=== PATIENT | male | born 1995 ===

== ENCOUNTER 2020-08-22 12:49 | Emergency (ER) | payer SELFPAY ==
[2020-08-22 13:09] VITALS: BP 157/97
--- NOTE | 2020-08-22 13:10 | Emergency Department Report ---
ED General Adult HPI - General Stated complaint: NOSE SWOLLEN Time Seen by Provider: 08/22/20 13:07 - History of Present Illness Initial comments: 24-year-old Upper Sorbian-speaking male patient presents with complaints of nasal pain after a trip and fall injury while playing soccer 4 days ago. He rates his pain as a 4/10 in severity and denies any difficulty breathing. He also denies any loss of consciousness at the time or nausea/vomiting - Related Data Previous Rx's Medication Instructions Recorded Last Taken Type Ibuprofen [Motrin 800 MG tab] 800 mg PO Q8HR PRN #20 tablet 08/22/20 Unknown Rx Allergies Allergy/AdvReac Type Severity Reaction Status Date / Time No Known Allergies Allergy Unverified 08/22/20 13:06 ED Review of Systems ROS: Stated complaint: NOSE SWOLLEN Other details as noted in HPI Constitutional: denies: chills, fever, malaise Eyes: denies: eye pain, vision change ENT: denies: throat pain Respiratory: denies: cough, shortness of breath Cardiovascular: denies: chest pain Gastrointestinal: denies: nausea, vomiting ED Past Medical Hx - Medications Home Medications: Home Medications Medication Instructions Recorded Confirmed Last Taken Type Ibuprofen [Motrin 800 MG tab] 800 mg PO Q8HR PRN #20 tablet 08/22/20 Unknown Rx ED Physical Exam - General General appearance: alert, in no apparent distress - Head Head exam: Present: normocephalic - Expanded Head Exam Expanded Head exam: Absent: abrasion, contusion, hematoma, racoon eyes, carrion's sign - Eye Eye exam: Present: normal appearance, EOMI. Absent: scleral icterus - ENT ENT exam: Present: other (Tenderness to palpation noted over the nasal bridge with right sided deformity) - Respiratory Respiratory exam: Absent: respiratory distress - Cardiovascular Cardiovascular Exam: Present: regular rate - Extremities Exam Extremities exam: Present: full ROM - Back Exam Back exam: Present: normal inspection - Neurological Exam Neurological exam: Present: alert, oriented X3, normal gait - Psychiatric Psychiatric exam: Present: normal affect, normal mood - Skin Skin exam: Present: warm, dry, intact, normal color. Absent: rash ED Course Vital Signs 08/22/20 13:06 Temperature 98.8 F Pulse Rate 76 Respiratory 16 Rate Blood Pressure 157/97 O2 Sat by Pulse 99 Oximetry ED Medical Decision Making - Radiology Data Radiology results: report reviewed CT facial bones wo con INDICATION: nasal pain/deformity after injury. TECHNIQUE: All CT scans at this location are performed using the following dose modulation technique: Automated exposure control. CONTRAST: None. COMPARISON: None available. FINDINGS: Comminuted nasal fracture with mild impaction and several millimeters of depression. The septum and other facial bones are intact other than avulsion at the nasal spine. Mild localized soft tissue swelling without additional soft tissue abnormality. Incidental noted is a mucous retention cyst at the left sphenoid sinus. IMPRESSION: 1. Comminuted, depressed nasal fracture. 2. Mucous retention cyst left sphenoid sinus. - Medical Decision Making 24-year-old male patient presents with complaints of nasal pain after a trip and fall injury while playing soccer 4 days ago. He rates his pain as a 4/10 in severity. He also denies any loss of consciousness, nausea/vomiting, dizziness, vision changes, neck pain, confusion, or memory loss. Patient states he fell hitting his face either on the ground or on another person. He has been applying ice to the nose and states some decreased breathing to the left nostril only CT of the facial bones shows comminuted mildly depressed fracture of the nasal bone. No hematoma noted to the left nare on exam. Patient had some decreased movement of air to the left nare, however he is still able to breathe from both nares. Patient to discharge home and follow-up with ENT first thing on Monday morning. Discussed signs and symptoms that should prompt immediate return to the emergency department in detail with patient who verbalizes understanding. Discussed with Dr. Eid who agrees with disposition. Critical care attestation.: If time is entered above; I have spent that time in minutes in the direct care of this critically ill patient, excluding procedure time. ED Disposition Clinical Impression: Nasal bone fracture Qualifiers: Encounter type: initial encounter Fracture type: closed Qualified Code(s): S02.2XXA - Fracture of nasal bones, initial encounter for closed fracture Disposition: TO HOME OR SELFCARE Is pt being admited?: No Condition: Stable Instructions: Nasal Fracture Prescriptions: Ibuprofen [Motrin 800 MG tab] 800 mg PO Q8HR PRN #20 tablet PRN Reason: pain Referrals: MARY MUNIZ MD [Staff Physician] - 08/24/20 Print Language: KAZAKH
--- NOTE | 2020-08-22 15:07 | Cat Scan Report ---
CT facial bones wo con INDICATION: nasal pain/deformity after injury. TECHNIQUE: All CT scans at this location are performed using the following dose modulation technique: Automated exposure control. CONTRAST: None. COMPARISON: None available. FINDINGS: Comminuted nasal fracture with mild impaction and several millimeters of depression. The se ptum and other facial bones are intact other than avulsion at the nasal spine. Mild localized soft tissue swelling without additional soft tissue abnormality. Incidental noted is a mucous retention cyst at the left sphenoid sinus. IMPRESSION: 1. Comminuted, depressed nasal fracture. 2. Mucous retention cyst left sphenoid sinus. Signer Name: Emil Mancilla MD Signed: 08/22/2020 3:03 PM Workstation Name: [id number]
== END 2020-08-22 15:45 | disposition home or self-care (01) ==
LOC: ED 12:49
DX: S02.2XXA Fracture of nasal bones, initial encounter for closed fracture (principal); Z79.899 Other long term (current) drug therapy; W18.30XA Fall on same level, unspecified, initial encounter; Y93.66 Activity, soccer; Y92.89 Other specified places as the place of occurrence of the external cause; Y99.8 Other external cause status
CPT/HCPCS: 70486